=== PATIENT | female | born 1985 | race Hispanic/Latino ===

== ENCOUNTER 2017-07-31 16:13 | Emergency (ER) | payer OTHER ==
[~2017-07-31] VITALS: Ht 147.3 cm; Wt 55.4 kg
[2017-07-31] MEDS ORDERED: MOTRIN800 MG PO (17:36)
[2017-07-31 18:37] VITALS: BP 107/60
== END 2017-07-31 18:37 | disposition home or self-care (01) | DRG 563 ==
LOC: ED 16:13
DX: S43.401A Unspecified sprain of right shoulder joint, initial encounter (principal); V43.53XA Car driver injured in collision with pick-up truck in traffic accident, initial encounter; Y92.414 Local residential or business street as the place of occurrence of the external cause; Y93.89 Activity, other specified

== ENCOUNTER 2019-10-07 | Emergency (ER) | payer OTHER ==
[~2019-10-07] MED LIST: MOTRIN800 MG PO
== END 2019-10-07 22:23 | disposition home or self-care (01) | DRG 605 ==
DX: S20.212A Contusion of left front wall of thorax, initial encounter (principal); S86.912A Strain of unspecified muscle(s) and tendon(s) at lower leg level, left leg, initial encounter; S39.011A Strain of muscle, fascia and tendon of abdomen, initial encounter; W11.XXXA Fall on and from ladder, initial encounter; Y93.89 Activity, other specified; Y92.89 Other specified places as the place of occurrence of the external cause; Y99.0 Civilian activity done for income or pay